=== PATIENT | male | born 1975 | race Two or more races ===

== ENCOUNTER 2017-02-02 14:06 | Day surgery (SDC) | payer BC ==
[2017-02-01 12:22] LABS: ASPARTATE AMINO TRANSFERASE 23 U/L (15-37); BLOOD UREA NITROGEN 12 mg/dL (7-18)
[~2017-02-02] VITALS: Ht 177.8 cm; Wt 117.3 kg
[~2017-02-02 14:06] MED LIST: BUPIVACAINE/PF 0.5% ONE; EPINEPHRINE 1 MG/ML, 1ML ONE; IBUP200C8 PO; LIDOCAINE/PF 1%, 30ML ONE; LISI-170 PO; SIMV20TA3 PO
[2017-02-02] MEDS ORDERED: hydrALAzine 20 MG/ML, 1ML IV PRN (14:30)
[2017-02-02] MEDS ORDERED: HYDROmorphone 1 MG/ML, 1ML IV PRN (14:30)
[2017-02-02] MEDS ORDERED: ONDANSETRON 2MG/ML, 2ML IVPush PRN (14:30)
[2017-02-02] MEDS ORDERED: EPHEDRINE 50 MG/ML, 1ML IVPush PRN (14:30)
[2017-02-02] MEDS ORDERED: METOPROLOL 1 MG/ML, 5ML IV PRN (14:30)
[2017-02-02] MEDS ORDERED: ALBUTEROL SULFATE 2.5 MG/3 ML NPPB PRN (14:30)
[2017-02-02] MEDS ORDERED: MEPERIDINE/PF 25MG/0.5ML IVPush PRN (14:30)
[2017-02-02] MEDS ORDERED: OXYcodone 5 MG/5 ML ORAL.SOL UDC PO PRN (14:30)
[2017-02-02] MEDS ORDERED: LABETALOL 5MG/ML, 20ML IV PRN (14:30)
[2017-02-02] MEDS ORDERED: ACETAMINOPHEN 325 MG TABLET PO PRN (14:30)
[2017-02-02 14:38] VITALS: BP 143/89
[2017-02-02] MEDS ORDERED: LACTATED RINGERS 1,000 ML IV SCH (14:41)
[2017-02-02] MEDS ORDERED: MIDAZOLAM 1 MG/ML, 2ML ONE (14:57)
[2017-02-02] MEDS ORDERED: FENTANYL PF 250 MCG/5ML ONE (14:57)
[2017-02-02] MEDS ORDERED: LIDOCAINE 1%, 2ML SQ PRN (15:00)
[2017-02-02] MEDS ORDERED: METOCLOPRAMIDE 5 MG/ML, 2ML ONE (15:50)
[2017-02-02] MEDS ORDERED: DEXAMETHASONE 4 MG/ML, 1ML ONE (15:50)
[2017-02-02] MEDS ORDERED: PROPOFOL 10 MG/ML, 20ML ONE (15:50)
[2017-02-02] MEDS ORDERED: ONDANSETRON 2MG/ML, 2ML ONE (15:50)
[2017-02-02] MEDS ORDERED: CEFAZOLIN 1,000 MG ONE ×2 (15:50)
[2017-02-02] MEDS ORDERED: KETOROLAC 30 MG/1 ML ONE (16:13)
[2017-02-02] MEDS ORDERED: LIDOCAINE 1%-EPI 1:100K, 30ML INFIL ONE (16:30)
[2017-02-02] MEDS ORDERED: BUPIVACAINE/PF-EPI 0.5% 1:200K INFIL ONE (16:31)
[2017-02-02] MEDS ORDERED: ACETAMINOPHEN 325 MG TABLET ONE (17:17)
[2017-02-02] MEDS ORDERED: ACETAMINOPHEN 650 MG/20.3 ML UDC ONE (17:18)
[2017-02-02] MEDS ORDERED: OXYcodone 5 MG/5 ML ORAL.SOL UDC ONE (17:18)
[2017-02-02] MEDS ORDERED: FENTANYL PF 100 MCG/2ML ONE (17:24)
[2017-02-02] MEDS: FENTANYL PF 100 MCG/2ML IV PRN ×2 (17:25→17:40)
[2017-02-02] MEDS ORDERED: SIMVASTATIN 20 MG TABLET PO SCH (21:00)
[2017-02-02] MEDS ORDERED: LISINOPRIL 20 MG TABLET PO SCH (21:00)
[2017-02-03] MEDS ORDERED: IBUPROFEN 200 MG TABLET PO SCH (09:00)
== END 2017-02-02 18:45 ==
LOC: OUT 14:06
PROVIDERS: ATTEND Orthopaedic Surgery
DX: S83.232A Complex tear of medial meniscus, current injury, left knee, initial encounter (principal); X58.XXXA Exposure to other specified factors, initial encounter; Y93.89 Activity, other specified; Y92.89 Other specified places as the place of occurrence of the external cause; Y99.8 Other external cause status; M94.262 Chondromalacia, left knee; I10 Essential (primary) hypertension; E11.9 Type 2 diabetes mellitus without complications
CPT/HCPCS: 29881; 36415; 80053; J0171; J0690; J1100; J1885; J2250; J2405; J2704; J2765; J3010; J3490; J7120